=== PATIENT | female | born 2000 | race Caucasian/White ===

== ENCOUNTER 2024-03-26 22:18 | Observation (INO) | payer BC, OTHER ==
[2024-03-26] MEDS ORDERED: RABIES VACCINE (PCEC)/PF 2.5 UNIT/VIAL IM ONE (23:02)
[2024-03-26] MEDS ORDERED: RABIES IMMUNE GLOBULIN/PF 300 UNIT/ML (5 ML) VIAL IM ONE (23:02)
[2024-03-26] MEDS ORDERED: AMPICILLIN NA/SULBACTAM NA 3 GM/100 ML BAG IVPB ONE (23:23)
[2024-03-27] LABS: HEMATOCRIT 36.9 % (32.4-45.2); HEMOGLOBIN 12.3 GM/dL (10.7-15.3); MCH 29.5 pg (25.7-33.7); MCHC 33.3 g/dl (32.0-36.0); MEAN CELL VOLUME 88.5 fl (80-96); MEAN PLT VOLUME 8.3 fl (7.5-11.1); PLATELET COUNT 218 10^3/uL (134-434); RBC 4.17 M/mm3 (3.60-5.2); RDW 12.7 % (11.6-15.6); WHITE BLOOD COUNT 7.9 K/mm3 (4.0-10.0)
[2024-03-27] MEDS: RABIES VACCINE (PCEC)/PF 2.5 UNIT/VIAL IM ONE
[2024-03-27] MEDS: AMPICILLIN NA/SULBACTAM NA 3 GM in SODIUM CHLORIDE 100 ML IVPB ONE (00:01)
[2024-03-27] MEDS: RABIES IMMUNE GLOBULIN 300 UNITS/1 ML VIAL IM ONE (00:01)
[2024-03-27 00:07] LABS: INR 1.04 (0.83-1.09)
[2024-03-27 00:10] LABS: ACTIVATED PTT 29.2 SECONDS (25.2-36.5); POTASSIUM 3.6 mmol/L (3.5-5.1)
[2024-03-27 00:11] LABS: BLOOD UREA NITROGEN 11.1 mg/dL (7-18); CALCIUM 9.2 mg/dL (8.5-10.1)
[2024-03-27 00:12] LABS: ALBUMIN 3.8 g/dl (3.4-5.0)
[2024-03-27 00:15] LABS: CREATININE 0.7 mg/dL (0.55-1.3)
[2024-03-27 00:17] LABS: BILIRUBIN,TOTAL 0.3 mg/dL (0.2-1); TOT PROT 6.6 g/dl (6.4-8.2)
[2024-03-27] MEDS: AMPICILLIN NA/SULBACTAM NA 3 GM in SODIUM CHLORIDE 100 ML IVPB SCH ×2 (00:27→04:00)
[2024-03-27 01:42] LABS: ERYTHROCYTE SEDIMENTATION RATE 6 mm/hr (0-20)
[2024-03-27 02:39] VITALS: BMI 21.1
[2024-03-27] MEDS: ACETAMINOPHEN 500 MG TABLET (FP) PO PRN (03:58)
[2024-03-27] MEDS: KETOROLAC TROMETHAMINE 30 MG/1 ML VIAL IVPUSH PRN (05:53)
[2024-03-27] MEDS ORDERED: ENOXAPARIN NA (PORCINE) 40 MG/0.4 ML DISP.SYRIN SQ SCH (10:00)
[2024-03-27 10:50] LABS: HEMOGLOBIN 11.7 GM/dL (10.7-15.3); MCH 30.2 pg (25.7-33.7); MCHC 34.3 g/dl (32.0-36.0); MEAN PLT VOLUME 8.7 fl (7.5-11.1); PLATELET COUNT 184 10^3/uL (134-434); RBC 3.86 M/mm3 (3.60-5.2); RDW 12.7 % (11.6-15.6); WHITE BLOOD COUNT 6.8 K/mm3 (4.0-10.0)
[2024-03-27] MEDS: ESCITALOPRAM OXALATE 20 MG TABLET PO SCH (10:50)
[2024-03-27 11:10] LABS: POTASSIUM 3.1 mmol/L (3.5-5.1)
[2024-03-27 11:13] LABS: CALCIUM 8.9 mg/dL (8.5-10.1)
[2024-03-27 11:14] LABS: ALBUMIN 3.4 g/dl (3.4-5.0); BLOOD UREA NITROGEN 11.1 mg/dL (7-18); MAGNESIUM 2.1 mg/dL (1.8-2.4)
[2024-03-27 11:18] LABS: BILIRUBIN,TOTAL 0.4 mg/dL (0.2-1); CREATININE 0.7 mg/dL (0.55-1.3); PHOSPHOROUS 3.7 mg/dL (2.5-4.9)
[2024-03-27 11:19] LABS: TOT PROT 6.2 g/dl (6.4-8.2)
[2024-03-27 14:27] VITALS: RESP 18
[2024-03-27] MEDS: POTASSIUM CHLORIDE ORAL LIQUID 20 MEQ/15 ML PO ONE (15:50)
[2024-03-28] MEDS ORDERED: RABIES VACCINE (PCEC)/PF 2.5 UNIT/VIAL IM ONE (08:00)
[2024-03-28 09:51] LABS: BASO % 0.7 % (0-2.0); EOS % 4.7 % (0-4.5); HEMATOCRIT 35.2 % (32.4-45.2); LYMPH % 30.9 % (8-40); MCHC 34.1 g/dl (32.0-36.0); MEAN CELL VOLUME 88.1 fl (80-96); MEAN PLT VOLUME 8.5 fl (7.5-11.1); MONO % 11.1 % (3.8-10.2); NEUT % 52.6 % (42.8-82.8); PLATELET COUNT 187 10^3/uL (134-434); RBC 3.99 M/mm3 (3.60-5.2); RDW 12.4 % (11.6-15.6); WHITE BLOOD COUNT 4.5 K/mm3 (4.0-10.0)
[2024-03-28 10:07] LABS: POTASSIUM 3.7 mmol/L (3.5-5.1)
[2024-03-28 10:10] LABS: ALBUMIN 3.5 g/dl (3.4-5.0)
[2024-03-28 10:11] LABS: BLOOD UREA NITROGEN 10.2 mg/dL (7-18); CALCIUM 8.5 mg/dL (8.5-10.1)
[2024-03-28 10:14] LABS: CREATININE 0.7 mg/dL (0.55-1.3)
[2024-03-28 10:15] LABS: BILIRUBIN,TOTAL 0.5 mg/dL (0.2-1); TOT PROT 6.1 g/dl (6.4-8.2)
[2024-03-28 11:01] VITALS: BP 108/69; PULSE 55; TEMP 97.9
[2024-03-28] MEDS: RABIES VACCINE (PCEC)/PF 2.5 UNIT/VIAL IM ONE (11:28)
== END 2024-03-28 12:03 | disposition home or self-care (01) ==
LOC: JER 22:18 → JERBED 23:47 → J5S 03-27 01:39
PROVIDERS: ADMIT Internal Medicine; ATTEND Internal Medicine
PROC: 3E03329 Introduction of Other Anti-infective into Peripheral Vein, Percutaneous Approach (ICD-10-PCS; principal; 2024-03-26)
PROC: 3E0333Z Introduction of Anti-inflammatory into Peripheral Vein, Percutaneous Approach (ICD-10-PCS; 2024-03-26)
PROC: 3E0234Z Introduction of Serum, Toxoid and Vaccine into Muscle, Percutaneous Approach (ICD-10-PCS; 2024-03-26)
DX: L03.012 Cellulitis of left finger (principal); S61.255A Open bite of left ring finger without damage to nail, initial encounter; F41.8 Other specified anxiety disorders; W55.01XA Bitten by cat, initial encounter; Y93.89 Activity, other specified; Y92.89 Other specified places as the place of occurrence of the external cause; Z23 Encounter for immunization
CPT/HCPCS: 36415; 73130-TC-LT-FY; 73220-TC-RT; 76882-TC-LT; 80053; 83735; 84100; 84703; 85025; 85027; 85610; 85651; 85730; 86140; 86850; 86900; 86901; 90375; 90471; 90675; 96365; 96366; 96375; 99285-25; G0378

== ENCOUNTER 2024-04-03 14:29 | Emergency (ER) | payer BC ==
[2024-04-03 14:55] VITALS: BP 98/63; PULSE 75; RESP 17; TEMP 98.1; BMI 21.5
[2024-04-03] MEDS ORDERED: RABIES VACCINE (PCEC)/PF 2.5 UNIT/VIAL IM ONE (15:51)
[2024-04-03] MEDS: RABIES VACCINE (PCEC)/PF 2.5 UNIT/VIAL IM ONE (16:07)
== END 2024-04-03 16:11 | disposition home or self-care (01) ==
LOC: JERFT 14:29
PROC: 3E0234Z Introduction of Serum, Toxoid and Vaccine into Muscle, Percutaneous Approach (ICD-10-PCS; principal; 2024-04-03)
DX: Z29.14 Encounter for prophylactic rabies immune globulin (principal)
CPT/HCPCS: 90675; 99281-25

== ENCOUNTER 2024-04-10 16:21 | Emergency (ER) | payer BC ==
[2024-04-10 16:57] VITALS: BP 110/68; PULSE 74; RESP 16; TEMP 98; BMI 21.5
[2024-04-10] MEDS ORDERED: RABIES VACCINE (PCEC)/PF 2.5 UNIT/VIAL IM ONE (17:08)
[2024-04-10] MEDS: RABIES VACCINE (PCEC)/PF 2.5 UNIT/VIAL IM ONE (17:22)
== END 2024-04-10 17:39 | disposition home or self-care (01) ==
LOC: JERFT 16:21
PROC: 3E0234Z Introduction of Serum, Toxoid and Vaccine into Muscle, Percutaneous Approach (ICD-10-PCS; principal; 2024-04-10)
DX: Z29.14 Encounter for prophylactic rabies immune globulin (principal)
CPT/HCPCS: 90471; 90675; 99281-25